=== PATIENT | female | born 1935 | race Caucasian/White ===

== ENCOUNTER 2020-05-01 13:30 | Outpatient (RCR) | payer MEDICARE, OTHER, SELFPAY ==
--- NOTE | 2020-04-07 11:41 | PTOPEVAL ---
INITIAL PHYSICAL THERAPY EVALUATION and PLAN OF CARE Thank you for referring Joann Gonzales to [facility] [place]. She will be seen in PT 2x/wk x 4 wks. Please review, sign, date and return this plan of care TANK. I agree with and certify that the following plan of care is medically necessary. Referring Physician Date Admitting Provider: Attending Provider: Nathanael Ziegler, MD Referring Provider: *PT Outpatient Evaluation Start: 04/07/20 09:46 Freq: Status: Active Protocol: Document 04/07/20 09:47 RAH (Rec: 04/07/20 11:26 RAH [id number]) Therapy Assessment Status Assessment Status Assessment Status Evaluation Outpatient Past Medical History Past Medical History Source of Past Medical History Patient Neurological History Hx Neurological Disorders No Significant History Cardiovascular History Hx Cardiac Disorders No Significant History Respiratory History Hx Respiratory Disorders No Significant History Gastrointestinal History Hx Gastrointestinal Disorders No Significant History Genitourinary History Hx Genitourinary Disorders No Significant History Musculoskeletal History Hx Back Pain Yes Hx Osteoporosis Yes Endocrine History Hx Hypothyroidism Yes Evaluation Information Problem Diagnosis low back pain, unsteady gait - equilibrium Onset beginning of 2019 Subjective Information Mostly began with L hip, spot Query Text:As Reported By Patient/ on L side she would rub, then Family ran down back of L leg, now has run across lower back - just thin area on the R. Will have L calf/leg pain/cramps - at night - needs to stand up to relieve the discomfort Will go to the bathroom several times/night - but the calf pain is what wakes her. First thing in morning - increased pain - gets better with movement - but does take it a while to get going. Began to use a cane - ~ 4 months ago Diagnostic Tests X-Rays For This Problem Yes MRI For This Problem Yes Previous Treatments Previous Treatments For This Problem seeing pain MD - 3 injections - helped some;PT at [facility]' Prior Level of Function Medications Home Meds (Include: OTC, RX, Vitamins, synthyrioid, lexapro, Herbals, Dose, Route,and Frequency) nitrofurantoin, fosamax, Query Text:Home Med Entries Will No aspirin, magnesiu
--- NOTE | 2020-04-28 08:43 | PCPTNOTE ---
Patient called & cancelled scheduled appointment this date due to not feeling well, not wanting to drive.
--- NOTE | 2020-05-01 15:22 | PTOPEVAL ---
PHYSICAL THERAPY DISCHARGE SUMMARY Thank you for referring Joann Gonzales to [facility]. She was seen for 7 visits. Goals have been met and she is compliant with her HEP. I agree with Joann's discharge from physical therapy. Referring Physician Date Admitting Provider: Attending Provider: Nathanael Ziegler, MD Referring Provider: *PT Outpatient Evaluation Start: 04/07/20 09:46 Freq: Status: Active Protocol: Document 05/01/20 13:35 RAH (Rec: 05/01/20 15:21 RAH [id number]) Therapy Assessment Status Assessment Status Assessment Status Discharge Evaluation Information Problem Subjective Information Jaleel reports that she just Query Text:As Reported By Patient/ had 2 injections on the left Family side of her back this morning. She still has symptoms in her L proximal, lateral calf region as well as in her L buttock which she describes as an itchiness. Tenderness is also present. She states that her leg cramping during sleep isn't there as much - couple of nights past week she wasn't wakened up at all. Doing HEP on a regular basis. Pain Assessment Timing of Pain Assessment Timing of Pain Assessment Assessment Pain Scale Pain Scale Used Numeric (1 - 10) Self Report Pain Assessment Lower Posterior Back Reported Pain Level 4 Radicular Pain Location discomfort in L proximal calf region Lowest Pain Intensity 3 Greatest Pain Intensity 7 Pain Score Pain Score 4: Self Report Cervical and Lumbar ROM Lumbar ROM Lumbar Flexion (0-90) 50 Query Text:Active in Degrees Lumbar Extension (0-40) 10 Query Text:Active in Degrees Lumbar Lateral Flexion Right (0-40) 15 Query Text:Active in Degrees Lumbar Lateral Flexion Left (0-40) 10 Query Text:Active in Degrees Normal Lumbar Segmental Motion No Lumbar Comments stiffness with lumbar spine with trunk motions Muscle Length Testing Muscle Length Testing Piriformis w/Hip Neutral (R) WFL,(L) WFL Muscle Length Testing Comments mild tightness with R hip flexors as compared to L, but increase in range present. Palpation Assessment Palpation Palpation P-A mob testing - L5-1 - tenderness present at L3 No increase
== END 2020-05-11 10:09 | disposition home health service (06) ==
LOC: ANHHIPT 13:30
PROVIDERS: PCP Internal Medicine; Visit Provider Internal Medicine
DX: M54.5 Low back pain (principal); R26.81 Unsteadiness on feet
CPT/HCPCS: 97110; 97140; 97161

== ENCOUNTER 2024-03-02 12:30 | Outpatient (RCR) | payer MEDICARE, OTHER, SELFPAY ==
--- NOTE | 2023-12-11 11:16 | PTOPEVAL1 ---
Assessment and note entered by Nguyen Hebert, PT Evaluation Information Assessment Status Evaluation Diagnosis dizziness and giddiness, oth abnormalities of gait and mobility, low back pain, chronic pain Subjective Information Pt reports prior history of injections from pain management for her back. Recently had injections again but they didn't work this time. Pt states this morning is worse than it has ever been but improved as she was up and moving around. Reports today she didn't feel like she could walk around her house without her cane. Usually uses her cane especially at night. A few months ago was up at night without her cane and fell and got a cut, never went to doctor. Reports sometimes symptoms will last for days and sometimes will go away for days. Denies usually pressure in ears, forehead, and nose but today notices she has some of this. Reports feeling like she is using her cane more now than she used to. Doesn't usually use her cane much in the house in the day just at night. Back pain Reports is worst in the morning, sleeps with a hot pack on her back. Reports a couple months ago her left leg would hurt when she woke up, had injections and that part has improved. Reported Pain Level Pain Score 5: Self Report Assessment PT Clinical Summary Pt presents with complaints of low back pain and dizziness symptoms. States she has had injections in the past for her back pain which helped at the time but recent injections approx 6 weeks ago didn 't work as well as they had in the past. Also with her dizziness symptoms she denies spinning today but also reports her feeling of off kilter is the worse today it has been. Vestibular evaluation is negative for BPPV, but demo's decreased vestibular system/balance with eyes closed testing . Also regarding her back she demo's decreased ROM , scoliotic curvature, and possible leg length discrepancy. Pt will benefit from physical therapy to address deficits, improve pain, improve balance, and thus improve gait and mobility for highest safest independent level. Plan of Care Interventions Elec
--- NOTE | 2023-12-11 11:16 | OPREHPOC ---
Outpatient Therapy Plan of Care This is a Multidisciplinary Plan of Care that may contain components documented by all disciplines (PT, OT, and ST.) PT Problem 1 PT Problem #1 Knowledge Deficit PT Goal 1 Goal Pt will be independent in HEP Pt will verbalize understanding of diagnosis and prognosis Target Visit 8 PT Problem 2 PT Problem #2 Pain PT Goal 1 Goal Pt will report greatest pain level at 5/10 or less to improve ADLs and activities Target Visit 8 PT Goal 2 Goal Pt will report lowest pain level at 0/10 at times Target Visit 12 PT Problem 3 PT Problem #3 Impaired Gait PT Goal 1 Goal Pt will demo ability to ambulate without AD x 150 feet in 2 min or less Target Visit 12 PT Problem 4 PT Problem #4 Impaired Balance PT Goal 1 Goal 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
--- NOTE | 2024-01-14 17:26 | PTOPPROG ---
Assessment and note entered by Nguyen Hebert, PT Assessment Status Progress Diagnosis dizziness and giddiness, oth abnormalities of gait and mobility, low back pain, chronic pain, abnormal postures, weakness Subjective Information Pt reports getting up at 6am then goes and sleeps in her chair for another two hours. Today is the worst has felt with her left leg in a week. Prior to that had no pain. Today was 03/08, was this way for a couple hours. The last couple days has been sticking with me . worked in the [place] this weekend, standing bent over while placing soil in her [place]. Reports has a small kneeling stool for gardening but hasn' t used it to sit on. Does still have pain with first getting up in the morning, but this last week had multiple days without pain in the morning. self-perceived improvement: 80 percent before today, but today feels a little worse today. Pain is going down back of left leg to outer lower leg. Assessment PT Clinical Summary Pt has attended therapy consistently for low back pain with radiculopathy. Prior to today she'd had multiple days in which she was pain-free. States she did do a lot of bending over the weekend with gardening. Demo's improved ROM of lumbar spine, reports less pain overall, and typically resolution of LLE discomfort. Assessment today, pt tieshaos decreased passive intervertebral motion lumbar and thoracic spine, tight hip flexors, and significant deficits in gluteal strength. Pt will benefit from continued therapy to continue improvement and meet her goals. Plan of Care Interventions Electrical Stimulation,Gait Training,Hot Pack/Cold Pack,Manual Therapy,Neuro Re-education, Therapeutic Activities,Therapeutic Exercise, Ultrasound PT Services Indicated Yes Treatment Frequency and 1-2x weekly x 6 visits Duration These treatments will address the objective and functional deficits as defined above. The patient will be advanced safely and appropriately in order for the patient to progress towards his/her prior level of function. Additional exercises will be introduced and as well as a comprehensive home exercise program upon discharge, if needed, ?to ensure carryover of functional gains achieved in the clinic. This treatment plan has been reviewed and agreement upon by the patient.
--- NOTE | 2024-03-03 11:44 | PTOPDC ---
Assessment and note entered by Nguyen Hebert, PT Assessment Status Discharge Diagnosis dizziness and giddiness, oth abnormalities of gait and mobility Subjective Information Pt states has always has pain in lumbar spine but varies levels. Pt reports did not get a gardening stool but doesn't need one anymore. Continues to report 80% improvement overall Pt reports injection in the right knee and this helped with her steps. Reported Pain Level Pain Score 0,8: Self Report Assessment PT Clinical Summary Pt reports from last reevaluation to now feels has not made further progress beyond 80-85% overall. She does admit to only performing her exercises 1- 2x weekly if that. Reports pain levels ranging from 2-8/10 compared to last reevaluation of 0-6/10 . She has made negligible progress in her hip and core strength, 5x sit to stand is same as her initial evaluation, and range of motion remains the same as last reevaluation. Pt was encouraged to perform her HEP more consistently, and educated due to lack of progress and inconsistency in her HEP, her plan of care will be closed at this time. Encouraged to attempt to modify lifestyle to perform a daily stretching regiment for back health. Advised should she continue to have pain ( with consistent HEP) in a couple months, to request return to therapy from her PCP. PT Services Indicated no
== END 2024-03-03 15:40 | disposition home or self-care (01) ==
LOC: ANHHIPT 12:30
PROVIDERS: PCP Physician Assistant Medical; Visit Provider Physician Assistant Medical
DX: M54.9 Dorsalgia, unspecified (principal); R26.89 Other abnormalities of gait and mobility; R42 Dizziness and giddiness; G89.29 Other chronic pain
CPT/HCPCS: 97014; 97035; 97110; 97112; 97116; 97140; 97162; 97530; 97750; G0283